=== PATIENT | female | born 1960 | race Caucasian/White ===

== ENCOUNTER 2021-09-11 09:05 | Emergency (ER) | payer SELFPAY ==
[~2021-09-11] VITALS: Ht 152.4 cm; Wt 68.0 kg
[2021-09-11 09:32] VITALS: BP_SYST 137
--- NOTE | 2021-09-11 09:41 | NUR ---
Patient to ER bed 6 to gown for evaluation. Side rails up. Report given to Jl MCKINLEY.
[2021-09-11] MEDS ORDERED: KETOROLAC TROMETHAMINE 60 MG/2 ML VIAL IM ONE (10:45)
[2021-09-11] MEDS ORDERED: TRAM50TA PO (10:46)
[2021-09-11] MEDS ORDERED: IBUP-1969 PO (10:46)
[2021-09-11 11:32] VITALS: BP_SYST 131
--- NOTE | 2021-09-11 11:33 | NUR ---
A/OX4 VSS VERBALIZED UNDERSTANDING OF DC INSTRUCTIONS, APPEARS TO BE IN NO ACUTE DISTRESS NOTED AT THIS TIME
== END 2021-09-11 11:34 | disposition home or self-care (01) ==
LOC: SED 09:05
DX: M13.842 Other specified arthritis, left hand (principal); M13.841 Other specified arthritis, right hand; Z79.899 Other long term (current) drug therapy
CPT/HCPCS: 96372; 99283; J1885